=== PATIENT | female | born 1995 | race Caucasian/White ===

== ENCOUNTER 2018-02-07 16:57 | Emergency (ER) | payer MEDICAID, OTHER ==
[2018-02-07 17:30] VITALS: BP 136/53
--- NOTE | 2018-02-07 17:56 | EDM.PDOC ---
ED HPI GENERAL MEDICAL PROBLEM - General Chief Complaint: General Stated Complaint: STOMACH PAIN/BLACKING OUT Time Seen by Provider: 02/07/18 17:28 Source of Information: Reports: Patient History Limitations: Reports: No Limitations - History of Present Illness INITIAL COMMENTS - FREE TEXT/NARRATIVE: Patient presents with abdominal pain across mid-abdomen and what she calls "blacking out" episodes. She has had the abdominal pain for 4 years ranging in severity from 2-7. It has been getting worse now running a range of 4-7, and she rates it 7 now. Some nausea but no vomiting. Occasional diarrhea but no constipation recently, although earlier in the course of her abdominal pain she did have constipation and tried Miralax and other constipation treatments. Nearly three weeks ago she had an abdominal US with her PCP which showed fatty liver. She has had known gastritis for a long time but doesn't really take anything more than Tylenol and was advised by her PCP not to use NSAIDS. She is on a daily contraceptive but isn't confident she isn't . LMP was fairly recent. She has had miscarriages. She describes her black outs as feeling like she is someone else. This just started in last couple days but she has a history of multiple personalities and sees a psychiatrist in [place] , most recently last month when he started her on Lamictal. She has also been diagnosed with PTSD, bipolar depression, anxiety, schizophrenia. She lives with her in-laws for the past 8 months; her was in alcohol treatment for much of that time but is back now. They had a big argument last night which seems to contribute to her black outs. Abdominal Pain Score (Numeric/FACES): 7 - Related Data Allergies Allergy/AdvReac Type Severity Reaction Status Date / Time No Known Allergies Allergy Verified 02/07/18 17:03 Home Meds: Home Meds Albuterol [Proventil HFA] 1 - 2 puff INH Q4H PRN 05/02/15 [History] Benzoyl Peroxide 1 applic TOP BID 02/07/18 [History] Cetirizine HCl/Pseudoephedrine [ZyrTEC-D] 1 tab PO BID 02/07/18 [History] Diclofenac Sodium [Voltaren] 75 mg PO BIDMEALS 02/07/18 [History] Fluticasone/Salmeterol [Advair 250-50 Diskus] 1 puff INH BID 02/07/18 [History] Melatonin 3 - 9 mg PO BEDTIME PRN 02/07/18 [History] Montelukast [Singulair] 10 mg PO BEDTIME 02/07/18 [History] Norgestimate-Ethinyl Estradiol [Tri-Sprintec Tablet] 1 tab PO DAILY 02/07/18 [ History] Omeprazole 20 mg PO DAILY 02/07/18 [History] Polyethylene Glycol 3350 [MiraLAX] 17 gram PO DAILY 02/07/18 [History] Prazosin HCl [Prazosin] 2 mg PO BEDTIME 02/07/18 [History] Triamcinolone Acetonide [Triamcinolone Acetonide 0.1% Crm] 1 applic TOP TID [History] lamoTRIgine [Lamotrigine] 50 mg PO ASDIRECTED 02/07/18 [History] metFORMIN HCl [Metformin HCl] 500 mg PO BID 02/07/18 [History] Past Medical History - Past Health History Medical/Surgical History: Denies Medical/Surgical History ED ROS GENERAL - Review of Systems Review Of Systems: See Below Constitutional: Denies: Fever, Chills HEENT: Reports: Throat Pain (scratchy, allergy related). Denies: Ear Pain, Vision Change Respiratory: Reports: No Symptoms. Denies: Shortness of Breath, Cough Cardiovascular: Reports: No Symptoms. Denies: Chest Pain, Lightheadedness, Syncope Endocrine: Reports: No Symptoms GI/Abdominal: Reports: Abdominal Pain, Decreased Appetite (mildly but ate okay today), Nausea. Denies: Constipation, Vomiting : Reports: Dysuria (two days), Flank Pain Musculoskeletal: Reports: No Symptoms Skin: Reports: No Symptoms. Denies: Cyanosis, Jaundice, Mottled, Pallor, Diaphoresis Neurological: Reports: No Symptoms. Denies: Confusion, Headache, Trouble Speaking, Weakness, Gait Disturbance Psychiatric: Reports: Anxiety, Other (see HPI). Denies: Agitation, Confusion ED EXAM, GENERAL - Physical Exam Exam: See Below Exam Limited By: No Limitations General Appearance: Alert, WD/WN, No Apparent Distress Eye Exam: Bilateral Eye: EOMI, Normal Inspection, PERRL Ears: Normal External Exam, Hearing Grossly Normal Nose: Normal Inspection, No Blood Throat/Mouth: Normal Inspection, Normal Lips, Normal Voice, No Airway Compromise Head: Atraumatic, Normocephalic Neck: Normal Inspection, Supple, Non-Tender, Full Range of Motion Respiratory/Chest: No Respiratory Distress, Lungs Clear, Normal Breath Sounds, No Accessory Muscle Use Cardiovascular: Regular Rate, Rhythm, No Murmur GI/Abdominal: Normal Bowel Sounds, Soft, No Organomegaly, No Distention, Guarding (mild), Tender (Tender to palpation bilat extreme lateral abdomen primarily. Slight tenderness over bladder and bilat upper quadrants.). No: Rigid Back Exam: CVA Tenderness (L), CVA Tenderness (R) Extremities: Normal Inspection, Normal Range of Motion Neurological: Alert, Oriented, Normal Cognition, No Motor/Sensory Deficits Psychiatric: Normal Affect, Normal Mood Skin Exam: Warm, Dry, Intact, Normal Color, No Rash Lymphatic: No Adenopathy Course - Vital Signs Last Recorded V/S: Last Vital Signs Temp 98.1 F 02/07/18 17:17 Pulse 94 02/07/18 17:17 Resp 16 02/07/18 17:17 BP 136/53 L 02/07/18 17:17 Pulse Ox 98 02/07/18 17:17 - Orders/Labs/Meds Orders: Active Orders 24 hr Category Date Time Status HCG QUALITATIVE,URINE [URCHEM] Stat Lab 02/07/18 17:19 Ordered UA W/MICROSCOPIC [URIN] Stat Lab 02/07/18 17:19 Ordered Labs: Laboratory Tests 02/07/18 02/07/18 Range/Units 17:19 17:19 Specimen Type Urinvoid Urine Color Yellow (YELLOW) Urine Appearance Slightly cloudy H (CLEAR) Urine pH 7.0 (5.0-9.0) Ur Specific [place] 1.010 (1.005-1.030) Urine Protein Negative (NEGATIVE) mg/dL Urine Glucose (UA) Negative (NEGATIVE) mg/dL Urine Ketones Negative (NEGATIVE) mg/dL Urine Occult Blood Negative (NEGATIVE) Urine Nitrite Negative (NEGATIVE) Urine Bilirubin Negative (NEGATIVE) Urine Urobilinogen 0.2 (0.2-1.0) E.U./dL Ur Leukocyte Esterase Moderate H (NEGATIVE) Urine RBC 0-5 /HPF Urine WBC >100 H /HPF Ur Epithelial Cells Moderate H /LPF Urine Bacteria Moderate H (NONE TO FEW) /HPF Urine HCG, Qual Negative (NEGATIVE) Departure - Departure Time of Disposition: 18:51 Disposition: Home, Self-Care 01 Condition: Good Clinical Impression: UTI (urinary tract infection) Qualifiers: Urinary tract infection type: site unspecified Hematuria presence: without hematuria Qualified Code(s): N39.0 - Urinary tract infection, site not specified - Discharge Information Additional Instructions: 1. Take the antibiotic as directed. 2. Drink 8 cups of water daily. 3. Follow up with your PCP for recheck in a week or sooner if worsening. 4. Call your psychiatrist tomorrow for recommendation on the episodes of multiple personality. - My Orders Last 24 Hours: My Active Orders 02/07/18 17:19 HCG QUALITATIVE,URINE [URCHEM] Stat UA W/MICROSCOPIC [URIN] Stat - Assessment/Plan Last 24 Hours: My Active Orders 02/07/18 17:19 HCG QUALITATIVE,URINE [URCHEM] Stat UA W/MICROSCOPIC [URIN] Stat
[2018-02-07] MEDS ORDERED: Ondansetron 4 MG Tab.DIS PO ONE (18:09)
[2018-02-07 18:28] LABS: CHLORIDE,CL 103 mmol/L (98-115); SODIUM,NA 141 mmol/L (136-145)
[2018-02-07] MEDS ORDERED: Ciprofloxacin 250 MG Tab PO ONE (18:50)
== END 2018-02-07 19:00 | disposition home or self-care (01) ==
LOC: KA.ED 16:57
DX: N39.0 Urinary tract infection, site not specified (principal); Z79.84 Long term (current) use of oral hypoglycemic drugs; Z79.899 Other long term (current) drug therapy
CPT/HCPCS: 36415; 80053; 81001; 81025; 83690; 85025; 87086; 99284; A9270-GY